=== PATIENT | female | born 1980 | race Caucasian/White ===

== ENCOUNTER 2020-07-16 21:32 | Emergency (ER) | payer BC ==
--- NOTE | 2020-07-16 21:40 | PDOC ---
Rapid Medical Evaluation Time Seen by Provider: 07/16/20 21:37 Medical Evaluation: 07/16/20 21:37 I have performed a brief in-person evaluation of this patient. CC: "dry throat" and chest pain x3 weeks. Drank 2 beers tonight. PE: No focal findings. Orders: cardiac w/u Patient will proceed to ED for further evaluation. Discharge Disposition - Diagnosis Chest pain - Referrals - Patient Instructions - Post Discharge Activity
[2020-07-16 21:41] VITALS: BP 152/83; PULSE 90; TEMP 98.5; BMI 26.2
[2020-07-16 22:26] LABS: BASO % 0.4 % (0-2.0); EOS % 1.7 % (0-4.5); HEMATOCRIT 35.6 % (32.4-45.2); HEMOGLOBIN 11.8 GM/dL (10.7-15.3); LYMPH % 35.4 % (8-40); MCH 28.4 pg (25.7-33.7); MCHC 33.2 g/dl (32.0-36.0); MEAN CELL VOLUME 85.5 fl (80-96); MEAN PLT VOLUME 8.2 fl (7.5-11.1); MONO % 6.9 % (3.8-10.2); NEUT % 55.6 % (42.8-82.8); PLATELET COUNT 291 K/MM3 (134-434); RBC 4.17 M/mm3 (3.60-5.2); RDW 13.4 % (11.6-15.6); WHITE BLOOD COUNT 7.7 K/mm3 (4.0-10.0)
[2020-07-16 22:28] LABS: INR 0.96 (0.83-1.09); PROTHROMBIN TIME (PATIENT) 11.3 SEC (9.7-13.0)
[2020-07-16 22:31] LABS: ACTIVATED PTT 31.9 SECONDS (25.2-36.5)
[2020-07-16] MEDS ORDERED: MAG HYDROX/AL HYDROX/SIMETH 30 ML UNIT-DOSE CUP PO ONE (22:53)
[2020-07-16 23:05] LABS: ALBUMIN 3.5 g/dl (3.4-5.0); ALK PHOS 51 U/L (45-117); ANION GAP 5 MMOL/L (8-16); BILIRUBIN,TOTAL 0.2 mg/dL (0.2-1); BLOOD UREA NITROGEN 10.8 mg/dL (7-18); CALCIUM 8.8 mg/dL (8.5-10.1); CHLORIDE 105 mmol/L (98-107); CO2 28 mmol/L (21-32); CREATININE 0.7 mg/dL (0.55-1.3); GLUCOSE,RANDOM 81 mg/dL (74-106); SGOT/AST 14 U/L (15-37); SGPT/ALT 16 U/L (13-61); SODIUM 138 mmol/L (136-145); TOT PROT 7.1 g/dl (6.4-8.2)
[2020-07-16] MEDS ORDERED: MAG HYDROX/AL HYDROX/SIMETH 30 ML UNIT-DOSE CUP ONE (23:53)
--- NOTE | 2020-07-17 00:06 | PDOC ---
History of Present Illness - General Chief Complaint: Chest Pain Stated Complaint: CHEST PAIN Time Seen by Provider: 07/16/20 21:37 History Source: Patient - History of Present Illness Initial Comments: 07/17/20 00:16 39-year-old female with on and off chest pain for the last 3 weeks with the dryness to the throat. Patient reports that dryness goes away with drinking water. Today noted to have chest pain similar to the last 3 weeks. Denies shortness of breath, pleuritic chest pain nausea, vomiting, abdominal pain, headache, dizziness, diaphoresis. No past medical history denies recent travel , prolonged sitting Past History - Medical History Allergies/Adverse Reactions: Allergies Allergy/AdvReac Type Severity Reaction Status Date / Time No Known Allergies Allergy Verified 07/16/20 21:41 COPD: No - Reproductive History Is Patient Now?: No - Psycho-Social/Smoking History Smoking History: Never smoked - Substance Abuse Hx (Audit-C & DAST Scrn) How often the patient has a drink containing alcohol: Monthly or less Score: In Men: 4 or > Positive; In Women: 3 or > Positive: 1 Screen Result (Pos requires Nsg. Audit-10AR): Negative In the last yr the pt used illegal drug/Rx for NonMed reason: No Score: Yes response is considered Positive: 0 Screen Result (Positive result requires Nsg. DAST-10): Negative Review of Systems - Review of Systems Able to Perform ROS?: Yes Is the patient limited Syrian proficient: No Constitutional: No: Symptoms Reported, See HPI, Chills, Diaphoresis, Fever, Loss of Appetite, Malaise, Night Sweats, Weakness, Weight Stable, Unintentional Wgt. Loss, Unexplained wgt Loss, Other HEENTM: Yes: Other (dry throat) Cardiac (ROS): Yes: Chest Pain. No: Symptoms Reported, See HPI, Edema, Irregular Heart Rate, Lightheadedness, Palpitations, Syncope, Chest Tightness, Other ABD/GI: No: Symptoms Reported, See HPI, Abdominal Distended, Abd. Pain w/ defecation, Blood Streaked Bowels, Constipated, Diarrhea, Difficulty Swallowing, Nausea, Poor Appetite, Poor Fluid Intake, Rectal Bleeding, Vomiting, Indigestion, Abdominal cramping, Tarry Stools, Other *Physical Exam - Vital Signs Last Vital Signs Temp Pulse Resp BP Pulse Ox 98.5 F 90 19 152/83 100 07/16/20 21:37 07/16/20 21:37 07/16/20 21:37 07/16/20 21:37 07/16/20 22:40 - Physical Exam General Appearance: Yes: Appropriately Dressed Respiratory/Chest: positive: Lungs Clear, Normal Breath Sounds. negative: Chest Tender Cardiovascular: positive: Regular Rhythm, Regular Rate Gastrointestinal/Abdominal: positive: Normal Bowel Sounds, Soft. negative: [place] Integumentary: positive: Normal Color, Dry, Warm Neurologic: positive: Fully Oriented, Alert, Normal Mood/Affect ED Treatment Course - LABORATORY CBC & Chemistry Diagram: 07/16/20 22:07 07/16/20 22:07 - ADDITIONAL ORDERS Additional order review: Laboratory Results 07/16/20 07/16/20 07/16/20 22:07 22:07 22:07 PT with INR 11.30 INR 0.96 PTT (Actin FS) 31.9 Sodium 138 Potassium 4.0 Chloride 105 Carbon Dioxide 28 Anion Gap 5 L BUN 10.8 Creatinine 0.7 Est GFR (CKD-EPI)AfAm 125.61 Est GFR (CKD-EPI)NonAf 108.38 Random Glucose 81 Calcium 8.8 Magnesium 2.0 Total Bilirubin 0.2 AST 14 L ALT 16 Alkaline Phosphatase 51 Creatine Kinase 71 Troponin I < 0.02 Total Protein 7.1 Albumin 3.5 TSH 1.06 Serum , Qual Negative 07/16/20 22:07 RBC 4.17 MCV 85.5 MCHC 33.2 RDW 13.4 MPV 8.2 Neutrophils % 55.6 Lymphocytes % 35.4 Monocytes % 6.9 Eosinophils % 1.7 Basophils % 0.4 - Medications Given in the ED: ED Medications Discontinued Medications Generic Name Dose Route Start Last Admin Trade Name Freq PRN Reason Stop Dose Admin Al Hydroxide/Mg Hydroxide 30 ml 07/16/20 22:53 07/16/20 23:55 Mylanta Oral Suspension - PO 07/16/20 22:54 30 ml ONCE ONE Administration Medical Decision Making - Medical Decision Making A: atypical chest pain P: labs EKG chest xray 07/17/20 00:20 patient is feeling better, will d/c home Discharge - Discharge Information Problems reviewed: Yes Clinical Impression/Diagnosis: Chest pain Qualifiers: Chest pain type: unspecified Qualified Code(s): R07.9 - Chest pain, unspecified Condition: Improved Disposition: HOME - Follow up/Referral Referrals: Tim Wharton MD [Staff Physician] - Call tomorrow - Patient Discharge Instructions Patient Printed Discharge Instructions: DI for Chest Pain Additional Instructions: your test findings were negative. It is important that you follow-up with your primary doctor and cardiology. Return to the emergency room for any worsening symptoms - Post Discharge Activity
--- NOTE | 2020-07-17 10:53 | EKG ---
Test Reason : Blood Pressure : / mmHG Vent. Rate : 065 BPM Atrial Rate : 065 BPM P-R Int : 154 ms QRS Dur : 078 ms QT Int : 414 ms P-R-T Axes : 050 056 045 degrees QTc Int : 430 ms NORMAL SINUS RHYTHM NORMAL ECG NO PREVIOUS ECGS AVAILABLE Confirmed by Fredy Bear MD ([id number]) on 07/17/2020 10:52:57 AM Referred By: Confirmed By:Fredy Bear MD
== END 2020-07-17 00:24 | disposition home or self-care (01) ==
LOC: JER 21:32
DX: R07.89 Other chest pain (principal)
CPT/HCPCS: 36415; 71046-TC-FY; 80053; 82550; 83735; 84443; 84484; 84703; 85025; 85610; 85730; 93005; 93010; 99285-25